=== PATIENT | female | born 1990 | race African-American/Black ===

== ENCOUNTER 2020-04-16 18:14 | Emergency (ER) | payer OTHER ==
[~2020-04-16] VITALS: Ht 162.6 cm; Wt 61.2 kg
[~2020-04-16 18:14] MED LIST: FLAGYL500 MG PO; MACROBID 100 M100 M1 PO
[2020-04-16 18:25] VITALS: BP 115/67
[2020-04-16] MEDS ORDERED: TRAMADOL 50 MG50 MG PO (19:09)
[2020-04-16] MEDS ORDERED: PREDNISONE 20 M20 MG PO (19:09)
== END 2020-04-16 19:05 | disposition home or self-care (01) ==
LOC: ER 18:14
DX: M76.62 Achilles tendinitis, left leg (principal); M76.61 Achilles tendinitis, right leg; Z88.2 Allergy status to sulfonamides; Z88.1 Allergy status to other antibiotic agents

== ENCOUNTER 2021-06-23 18:43 | Emergency (ER) | payer OTHER ==
[~2021-06-23] VITALS: Ht 165.1 cm; Wt 63.5 kg
[~2021-06-23 18:43] MED LIST changes: +PREDNISONE 20 M20 MG PO; +TRAMADOL 50 MG50 MG PO
[2021-06-23 19:08] VITALS: BP 121/65
[2021-06-23 20:03] LABS: URINE BILIRUBIN NEGATIVE (Negative); URINE BLOOD NEGATIVE (Negative); URINE CLARITY CLEAR; URINE COLOR YELLOW; URINE GLUCOSE-RANDOM* NEGATIVE (Negative); URINE KETONES TRACE (Negative); URINE LEUKOCYTES-REFLEX NEGATIVE (Negative); URINE NITRITE-REFLEX NEGATIVE (Negative); URINE PROTEIN (DIPSTICK) NEGATIVE (Negative)
== END 2021-06-23 22:04 | disposition home or self-care (01) ==
LOC: ER 18:43
PROVIDERS: Nurse Practitioner Family
DX: O20.0 Threatened abortion (principal); Z3A.01 Less than 8 weeks gestation of pregnancy; Z88.2 Allergy status to sulfonamides; Z88.1 Allergy status to other antibiotic agents; Z79.899 Other long term (current) drug therapy